=== PATIENT | female | born 2005 | race African-American/Black ===

== ENCOUNTER 2025-02-26 08:52 | Emergency (ER) | payer OTHER ==
[~2025-02-26] VITALS: Ht 165.1 cm; Wt 87.7 kg
[2025-02-26 09:45] LABS: KETONE, URINE AUTO RFX NEGATIVE (NEGATIVE); LEUKOCYTE ESTERASE UR AUTO RFX NEGATIVE (NEGATIVE); MUCUS, URINE RFX MODERATE (NEGATIVE); NITRITE, URINE AUTO RFX NEGATIVE (NEGATIVE); RBC, URINE AUTO RFX 0 /HPF (0-3); SQUAM EPITHELIAL CELL UR AURFX 27 /HPF (0-6); WBC, URINE AUTO RFX 7 /HPF (0-3)
[2025-02-26 10:41] LABS: BASO # 0.0 10^3/uL (0.0-0.2); BASO % 0.1 % (0.0-1.0); EOS # 0.0 10^3/uL (0.0-0.5); EOS % 0.3 % (0.0-3.0); LYMPH # 1.2 10^3/uL (1.5-5.0); LYMPH % 17.2 % (24.0-44.0); MONO # 0.4 10^3/uL (0.0-0.8); MONO % 5.5 % (2.0-8.0); NEUTROPHILS # 5.3 10^3/uL (1.5-8.5); NEUTROPHILS % 76.5 % (36.0-66.0); PLATELET COUNT, AUTOMATED 211 10^3/uL (150-450)
[2025-02-26 11:05] LABS: ALT/SGPT 11 U/L (7.0-40); AST/SGOT 20 U/L (<34); CALCIUM LEVEL 8.2 MG/DL (8.5-10.1); CARBON DIOXIDE LEVEL 25 MMOL/L (20-31); CHLORIDE LEVEL 106 MMOL/L (98-107); CREATININE FOR GFR 0.53 MG/DL (0.55-1.30); GLOMERULAR FILTRATION RATE > 90.0 (>60); MAGNESIUM LEVEL 1.6 MG/DL (1.8-2.4); POTASSIUM SERUM 4.3 MMOL/L (3.5-5.1); SODIUM LEVEL 139 MMOL/L (136-145)
[2025-02-26 11:08] LABS: INR 0.9
[2025-02-26] MEDS: NS (Normal Saline) 0.9% 1,000 ML IV ONE (11:34)
[2025-02-26] MEDS: CEPHALEXIN 500 MG CAP PO ONE (11:34)
[2025-02-26] MEDS: MAG SULF 1GM/100ML (MAG RUN) 1 GM in IV 1 EA IV ONE (11:35)
[2025-02-26] MEDS: ACETAMINOPHEN 500 MG TAB PO ONE (11:35)
[2025-02-26] MEDS ORDERED: CEPH500C PO (12:17)
[2025-02-26 13:02] VITALS: BP 107/58; TEMP 97.9; O2SAT 100
== END 2025-02-26 13:17 | disposition home or self-care (01) ==
LOC: M ED 08:52
DX: O23.32 Infections of other parts of urinary tract in pregnancy, second trimester (principal); O99.282 Endocrine, nutritional and metabolic diseases complicating pregnancy, second trimester; E83.42 Hypomagnesemia; Z3A.16 16 weeks gestation of pregnancy; Z91.018 Allergy to other foods; Z79.2 Long term (current) use of antibiotics
CPT/HCPCS: 80048; 80076; 81001; 83735; 84550; 85025; 85384; 85610; 85730; 86850; 86900; 86901; 93005; 96365; 99284; J3475